=== PATIENT | female | born 1970 | race Caucasian/White ===

== ENCOUNTER 2022-01-18 12:44 | Day surgery (SDC) | payer OTHER ==
[2022-01-18] MEDS ORDERED: DIPRIVAN 200 MG/20 ML IV ONE (15:42)
[2022-01-18] MEDS ORDERED: Lactated Ringers 1,000 ML IV ONE (16:24)
--- NOTE | 2022-01-18 16:46 | XRAY ---
Indication: Bilateral SI joint injection. Intraoperative fluoroscopy provided for 24 seconds. 5 digital spot images submitted for interpretation demonstrates posterior needle tip projecting over the inferior left and right SI joint. Correlate with intraoperative findings/report. Incidental partially visualized IUD.
--- NOTE | 2022-01-18 16:47 | XRAY ---
24 seconds fluoroscopy time in surgery for injections of both SI joints.
== END 2022-01-18 16:17 | disposition home or self-care (01) ==
LOC: SDC-PAIN 12:44
PROVIDERS: ATTEND Psychiatry & Neurology Pain Medicine
DX: M46.1 Sacroiliitis, not elsewhere classified (principal); Z79.899 Other long term (current) drug therapy
CPT/HCPCS: 72202; 77002; 84703; J2704

== ENCOUNTER 2023-06-13 14:19 | Day surgery (SDC) | payer BC, OTHER ==
[2023-06-13] MEDS ORDERED: LIDOCAINE HCL 2% 100 MG/5 ML IJ ONE (14:20)
[2023-06-13 14:53] LABS: HCG URINE TEST NEGATIVE (NEGATIVE)
[2023-06-13] MEDS ORDERED: Lactated Ringers 1,000 ML IV ONE (16:00)
[2023-06-13] MEDS ORDERED: DIPRIVAN 200 MG/20 ML IV ONE (16:06)
--- NOTE | 2023-06-13 22:45 | XRAY ---
Indication: Left C2-C4 MBB. Intraoperative fluoroscopy provided for 22 seconds. 5 digital spot images submitted for interpretation demonstrates posterior needle tips projecting over the expected left C2-C4 nerve roots. Correlate with intraoperative findings/report.
--- NOTE | 2023-06-14 09:07 | XRAY ---
22 seconds of fluoroscopy was used in surgery for a left C2-C4 MBB.
== END 2023-06-13 16:38 | disposition home or self-care (01) ==
LOC: SDC-PAIN 14:19
PROVIDERS: ATTEND Psychiatry & Neurology Pain Medicine
DX: M47.812 Spondylosis without myelopathy or radiculopathy, cervical region (principal)
CPT/HCPCS: 64490; 64491; 72040; 77002; 81025; J2704

== ENCOUNTER 2023-09-27 07:55 | Day surgery (SDC) | payer BC, OTHER ==
[2023-09-27] MEDS ORDERED: Sodium Chloride 0.9(Preservative Free) 10 ML IJ ONE (07:56)
[2023-09-27] MEDS ORDERED: Depo-Medrol 40 MG/ML IM ONE (07:56)
[2023-09-27] MEDS ORDERED: XYLOCAINE-MPF 1% 5ML SDV IJ ONE (07:56)
[2023-09-27 09:00] LABS: HCG URINE TEST NEGATIVE (NEGATIVE)
[2023-09-27] MEDS ORDERED: DIPRIVAN 200 MG/20 ML IV ONE (10:02)
[2023-09-27] MEDS ORDERED: Xylocaine-Mpf 2% 5 Ml Vial ONE (10:05)
[2023-09-27 11:32] LABS: Appearance Cloudy (Clear); Bacteria Rare /HPF (None Seen); Bilirubin Negative (Negative); Blood Negative (Negative); Epithelial Cells Few /HPF (None Seen); Glucose, Urine Negative (Negative); Hyaline Casts NONE SEEN /LPF (0-2); Ketones Negative (Negative); Leukocyte Esterase Small (Negative); Nitrite Negative (Negative); Ph 5.5 (4.6-8.0); Protein,Urine Dip Negative (Negative); RBC 0-2 /HPF (0-5); Urobilinogen 0.2 mg/dL (0.2); WBC 21-50 /HPF (0-5)
[2023-09-27 11:33] LABS: ADD URINE CULTURE? YES (NO)
[2023-09-27 12:06] LABS: Absolute Neutrophil Ct (ANC) 4.29 x10^3/uL (1.4-6.9); BASOPHIL % 0.3 % (0.0-0.4); Basophil (Absolute #) 0.02 x10^3/uL (0-0.4); Eosinophil % 1.7 % (0.00-5.0); Eosinophil (Absolute #) 0.12 x10^3/uL (0-0.5); Hematocrit 37.7 % (35-47); Hemoglobin 12.3 g/dL (12.0-16.0); IMMATURE GRAN # 0.02 x10^3u/L (0.00-0.03); IMMATURE GRAN % 0.3 % (0.00-0.4); Lymphocyte (Absolute #) 2.34 x10^3/uL (1.0-4.6); Lymphocytes % 32.9 % (24.0-44.0); Mean Cell Volume 92.4 fL (78-100); Mean Corpuscular Hemoglobin 30.1 pg (26-32); Mean Corpuscular Hgb Concent. 32.6 g/dL (32-36); Mean Platelet Volume 9.9 fL (7.5-11.0); Monocyte (Absolute #) 0.32 x10^3/uL (0.0-1.3); Monocytes % 4.5 % (0.0-12.0); Neutrophil % 60.3 % (36.0-66.0); Platelet Count 275 x10^3/uL (150-450); Red Blood Count 4.08 x10^6/uL (4.1-5.4); Red Cell Distribution Width 13.4 % (11.5-14.0); White Blood Count 7.1 x10^3/uL (4.0-10.5)
--- NOTE | 2023-09-27 12:06 | XRAY ---
Indication: Lumbar MARY. Intraoperative fluoroscopy provided for 12 seconds. 2 digital spot image submitted for interpretation demonstrates posterior needle tip projecting just posterior to lumbosacral junction. Small amount of contrast injected for needle tip placement. Correlate with intraoperative findings/report.
[2023-09-27 12:29] LABS: Erythrocyte Sedimentation Rate 26 mm/hr (0-20)
[2023-09-27 13:02] LABS: ALBUMIN 4.2 g/dL (3.5-5.0); ANION GAP 10.1 MEQ/L (5-15); BILIRUBIN,TOTAL 0.2 mg/dL (0.2-1.3); Calcium 9.3 mg/dL (8.4-10.2); Creatinine 1 0.55 mg/dL (0.52-1.04); EST GLOMERULAR FILTRATION RATE 108.9 ML/MIN; Potassium 4.2 mmol/L (3.5-5.1); TSH, 3RD Generation 2.24 mIU/L (0.47-4.68); Total Protein 7.4 g/dL (6.3-8.2)
--- NOTE | 2023-09-27 13:06 | XRAY ---
12 seconds of fluoroscopy was used in surgery for a lumbar MARY.
[2023-09-27] MEDS ORDERED: Lactated Ringers 1,000 ML IV ONE (16:15)
[2023-09-29 08:33] LABS: Antinuclear Antiboides, IFA Negative (.)
== END 2023-09-27 10:35 | disposition home or self-care (01) ==
LOC: SDC-PAIN 07:55
PROVIDERS: ATTEND Psychiatry & Neurology Pain Medicine
DX: M54.16 Radiculopathy, lumbar region (principal); Z00.01 Encounter for general adult medical examination with abnormal findings; I10 Essential (primary) hypertension; M25.50 Pain in unspecified joint; Z79.899 Other long term (current) drug therapy
CPT/HCPCS: 36415; 62323; 72100; 77003; 80053; 80061; 81001; 81025; 83036; 83721; 84443; 85025; 85652; 86038; 86431; 87086; J1030; J2704; Q9966

== ENCOUNTER 2023-11-22 13:52 | Day surgery (SDC) | payer BC, OTHER ==
[2023-11-22 14:08] LABS: HCG URINE TEST NEGATIVE (NEGATIVE)
== END 2023-11-22 14:15 | disposition home or self-care (01) ==
LOC: SDC-PAIN 13:52
PROVIDERS: ATTEND Psychiatry & Neurology Pain Medicine
DX: M54.16 Radiculopathy, lumbar region (principal); M53.3 Sacrococcygeal disorders, not elsewhere classified; M54.12 Radiculopathy, cervical region; M47.812 Spondylosis without myelopathy or radiculopathy, cervical region; M47.817 Spondylosis without myelopathy or radiculopathy, lumbosacral region; M16.11 Unilateral primary osteoarthritis, right hip; M25.512 Pain in left shoulder; M25.511 Pain in right shoulder
CPT/HCPCS: 81025

== ENCOUNTER 2023-12-12 14:41 | Day surgery (SDC) | payer BC, OTHER ==
[2023-12-12] MEDS ORDERED: BUPIVACAINE 0.5% VIAL IJ ONE (14:42)
[2023-12-12 15:03] LABS: HCG URINE TEST NEGATIVE (NEGATIVE)
[2023-12-12] MEDS ORDERED: Lactated Ringers 1,000 ML IV ONE (15:34)
[2023-12-12] MEDS ORDERED: DIPRIVAN 200 MG/20 ML IV ONE (16:05)
--- NOTE | 2023-12-12 16:43 | XRAY ---
Indication: Left C2-C4 MBB. Intraoperative fluoroscopy provided for 19 seconds. 2 digital spot image submitted for interpretation demonstrates posterior needle tips projecting over the expected left C2-C4 nerve roots. Correlate with intraoperative findings/report.
--- NOTE | 2023-12-12 16:47 | XRAY ---
19 seconds of fluoroscopy was used in surgery for a left C2-C4 MBB.
== END 2023-12-12 16:36 | disposition home or self-care (01) ==
LOC: SDC-PAIN 14:41
PROVIDERS: ATTEND Psychiatry & Neurology Pain Medicine
DX: M47.812 Spondylosis without myelopathy or radiculopathy, cervical region (principal)
CPT/HCPCS: 64490; 64491; 72040; 77002; 81025; J2704

== ENCOUNTER 2024-01-09 15:15 | Day surgery (SDC) | payer BC, OTHER ==
[2024-01-09] MEDS ORDERED: Decadron 4 MG INJ IV ONE (15:16)
[2024-01-09] MEDS ORDERED: BUPIVACAINE 0.5% VIAL IJ ONE (15:16)
[2024-01-09] MEDS ORDERED: LIDOCAINE HCL 1% 50 MG/5 ML VL PF IJ ONE (15:16)
[2024-01-09 15:28] LABS: HCG URINE TEST NEGATIVE (NEGATIVE)
[2024-01-09] MEDS ORDERED: DIPRIVAN 200 MG/20 ML IV ONE ×2 (17:02→17:20)
[2024-01-09] MEDS ORDERED: Lactated Ringers 1,000 ML IV ONE (17:39)
--- NOTE | 2024-01-09 18:22 | XRAY ---
Indication: Left C2-C4 RFA. Intraoperative fluoroscopy provided for 36 seconds. 3 digital spot image submitted for interpretation demonstrates posterior needle tips projecting over the expected left C2-C4 nerve roots. Correlate with intraoperative findings/report.
--- NOTE | 2024-01-10 12:01 | XRAY ---
36 seconds of fluoroscopy was used in surgery for a left C2-C4 RFA.
== END 2024-01-09 17:40 | disposition home or self-care (01) ==
LOC: SDC-PAIN 15:15
PROVIDERS: ATTEND Psychiatry & Neurology Pain Medicine
DX: M47.812 Spondylosis without myelopathy or radiculopathy, cervical region (principal)
CPT/HCPCS: 64633; 64634; 72040; 77002; 81025; J1100; J2001; J2704

== ENCOUNTER 2024-12-25 14:24 | Day surgery (SDC) | payer BC, OTHER ==
[2024-12-25] MEDS ORDERED: methylPREDNISolone acetate IM ONE (14:25)
[2024-12-25] MEDS ORDERED: BUPIVACAINE 0.5% VIAL IJ ONE (14:25)
[2024-12-25] MEDS ORDERED: propofoL IV ONE (16:05)
--- NOTE | 2024-12-25 20:41 | XRAY ---
Indication: Bilateral SI joints injection. Intraoperative fluoroscopy provided for 21 seconds. 2 digital spot images submitted for interpretation demonstrates posterior needle tips projecting over left and right SI joints. Small amount of contrast injected for both needle tip placement. Correlate with intraoperative findings/report.
--- NOTE | 2024-12-25 20:45 | XRAY ---
21 seconds of fluoroscopy were used in surgery for bilateral sacroiliac joint injections.
== END 2024-12-25 16:34 | disposition home or self-care (01) ==
LOC: SDC-PAIN 14:24
PROVIDERS: ATTEND Psychiatry & Neurology Pain Medicine
DX: M46.1 Sacroiliitis, not elsewhere classified (principal)
CPT/HCPCS: 27096; 72202; 77002; J1010; J2704; Q9966